=== PATIENT | female | born 1960 | race Caucasian/White ===

== ENCOUNTER → 2016-10-13 | Outpatient (CLI) | payer BC, OTHER ==
[~2016-10-13] MED LIST: ASPIR-TRIN325 MG PO; CELEBREX200 MG PO; COLACE100 MG PO; ESTROPIPATE0.75 MG PO; MILK OF MA400 MG/5 M; MILK OF MA400 MG/5 M PO; MIRALAX17 GM PO; MYRBETRIQ50 MG PO; PERCOCET 10-321 EACH PO; PRISTIQ ER100 MG PO; PROTONIX40 MG PO; ROPINIROLE HCL1 MG PO; THERA-VITE W/ B1 TAB PO; TOPAMAX100 MG PO; VITAMIN C WITH500 MG PO
== END | disposition disaster alternative care site (69) ==
LOC: GRAD 12:45
DX: M76.891 Other specified enthesopathies of right lower limb, excluding foot (principal); S93.601A Unspecified sprain of right foot, initial encounter; M21.40 Flat foot [pes planus] (acquired), unspecified foot; M21.6X1 Other acquired deformities of right foot; M79.671 Pain in right foot; R60.0 Localized edema

== ENCOUNTER 2016-10-25 09:18 | Observation (INO) | payer BC, OTHER ==
[~2016-10-25] VITALS: Ht 172.7 cm; Wt 127.1 kg
--- NOTE | ~2016-10-25 | OR ---
PATIENT'S NAME: [facility] AGE: 56 Y [address] ROOM: [place] [id number] LOCATION: [facility] ADMIT DATE: 10/25/2016 OR/Procedure Report DISCHARGE DATE: FAMILY PHYSICIAN: Fan Avalos MD ATTENDING PHYSICIAN: YANETH CUEVAS SURGEON: Yaneth Cuevas MD TAKE DOWN INSPECTOR: Lee Reeves PA-C DATE OF PROCEDURE: 10/25/2016 PREOPERATIVE DIAGNOSES: 1. Right symptomatic flatfoot. 2. Sub-fibular impingement. 3. Gastrocnemius equinus. 4. Pes cavovarus deformity. 5. Forefoot abductus. 6. Shortened Achilles tendon. POSTOPERATIVE DIAGNOSES: 1. Right symptomatic flatfoot. 2. Sub-fibular impingement. 3. Gastrocnemius equinus. 4. Pes cavovarus deformity. 5. Forefoot abductus. 6. Shortened Achilles tendon. PROCEDURES PERFORMED: 1. Right gastrocnemius recession. 2. Right medial calcaneal sliding osteotomy. 3. Lateral column lengthening. 4. Cotton osteotomy of the medial cuneiform. 5. Use of intraoperative fluoroscopy, less than one hour. ANESTHESIA: General anesthesia with peripheral nerve blocks. ESTIMATED BLOOD LOSS: Minimal. TOURNIQUET: Right proximal thigh, 250 mmHg. SPECIMENS: None. COMPLICATIONS: None. DISPOSITION: Stable, in PACU. COUNTS: All counts were correct. PATIENT'S NAME: [facility] AGE: 56 Y [address] ROOM: [place] [address] LOCATION: [facility] ADMIT DATE: 10/25/2016 OR/Procedure Report DISCHARGE DATE: FAMILY PHYSICIAN: Fan Avalos MD ATTENDING PHYSICIAN: YANETH CUEVAS IMPLANTS: Included Arthrex Step Plate for the calcaneal osteotomy, Arthrex metallic wedge and screws for the lateral column lengthening, metallic wedge for cotton osteotomy of the medial cuneiform, and metallic staple. INDICATIONS: Ms. Sheppard is a pleasant, 56-year-old female who underwent the noted procedures above. The risks, benefits, and alternatives to pursuing surgical intervention were discussed with the patient in detail. The patient elected to proceed with surgery. Anesthesia was consulted for their perioperative evaluation of the patient. I marked the patient's right lower extremity, indicating the correct surgical site. DESCRIPTION OF PROCEDURE: The patient was brought from the holding area to the operating room. A time-out was performed. Anesthesia was administered. Perioperative antibiotics were also administered. The patient was placed supine on the operating table, and the right lower extremity was then prepped and draped in the sterile fashion. I turned my attention to the right foot. An Esmarch was used to exsanguinate the limb, and the tourniquet was inflated to 250 mmHg. I began at the medial aspect of the leg. I began with a longitudinal incision through skin and subcutaneous tissue, down through fascia, to expose the gastrocnemius aponeurosis. I performed a gastrocnemius recession procedure. I achieved improved ankle dorsiflexion and good excursion of the gastrocnemius aponeurosis after it was lysed. The wound was then copiously irrigated with normal sterile saline solution and closed in layers. I then turned my attention to the lateral aspect of the hindfoot. I introduced intraoperative fluoroscopy. I made an incision over the lateral aspect of the calcaneus through skin and subcutaneous tissue, down to bone. I used a wood handle to elevate the soft tissue off the calcaneus. Using a sagittal saw. I performed my calcaneal osteotomy. I split the calcaneus medially approximately 1 cm. I then placed my Arthrex Step Plate by fixing 2 screws in the distal calcaneus and then a lag screw into the proximal portion of the calcaneus to compress it with approximately 1 cm of excursion. Two locking screws were placed at the proximal portion of the calcaneus to hold it in place. Plain radiographs of the calcaneus revealed successful medial calcaneal sliding osteotomy as well as axial views of the calcaneus. The wound was then copiously irrigated and closed in layers. I then turned my attention to the anterior process of the calcaneus. I began with a longitudinal incision through skin and subcutaneous tissue. I retracted the peroneal tendons posteriorly. Using a Henderson elevator. I identified fluoroscopically the level of my lateral column lengthening. Using PATIENT'S NAME: KAN SHEPPARD [facility] AGE: 56 Y [address] ROOM: [address] [address] LOCATION: [facility] ADMIT DATE: 10/25/2016 OR/Procedure Report DISCHARGE DATE: FAMILY PHYSICIAN: Fan Avalos MD ATTENDING PHYSICIAN: YANETH CUEVAS a sagittal saw, I performed my osteotomy. Using an intramedullary device, I was able to correct the forefoot abductus by placing a metallic wedge at the osteotomy site for the lateral column lengthening. I achieved good correction there. Once the wedge was in place, I confirmed its position fluoroscopically. Two screws were placed to the wedge to hold it in place. Final fluoroscopic images revealed successful lateral column lengthening. The wound was then copiously irrigated with normal sterile saline solution and closed in layers. I then turned my attention to the medial aspect of the foot. The patient appeared to have had previous radiographic and MRI evidence of a posterior tibial tendon tenolysis and transfer of the flexor digitorum longus tendon to the navicular bone with metallic suture anchors. There was also a well-healed surgical incision at that site. I used a Henderson elevator and fluoroscopy to identify the medial cuneiform. I made a dorsal incision over the medial cuneiform through skin and subcutaneous tissue. I made a capsular incision and identified the midportion of the medial cuneiform. To perform my plantar flexion cotton osteotomy, I used an oscillating saw to osteotomize the medial cuneiform. I placed one of the Arthrex metallic wedges size 4 and then placed an Arthrex metallic wedge in order to achieve this plantar flexion osteotomy. I achieved good correction. This helped to re-establish the position of the medial longitudinal arch. To hold the hardware in place, a metallic staple was placed over the medial cuneiform. The wound was then copiously irrigated with normal sterile saline solution and closed in layers. Final fluoroscopic images of the foot revealed successful flatfoot correction with hardware in place. No evidence of complication. The skin was then approximated with 3-0 nylon suture in an interrupted horizontal mattress fashion. The tourniquet was let down. Sterile dressing was placed in the form of Xeroform, followed by 4x4 and Webril. The patient was then placed into a well-padded short-leg splint with the ankle in neutral dorsiflexion. All the toes reperfused. The patient was then transferred from the operating table onto the stretcher and then brought to the recovery room in stable condition. There were no intraoperative complications noted. Of note, my PA, Lee Reeves PA-C, played an integral role in the intraoperative care of this patient. This included preoperative positioning, intraoperative expert retraction, and closing and splinting functions. IMPRESSION: The patient is status post the noted procedures above. PATIENT'S NAME: KAN SHEPPARD [facility] AGE: 56 Y [address] ROOM: [place] [address] LOCATION: [facility] ADMIT DATE: 10/25/2016 OR/Procedure Report DISCHARGE DATE: FAMILY PHYSICIAN: Fan Avalos MD ATTENDING PHYSICIAN: YANETH CUEVAS PLAN: The patient will be nonweightbearing on the right lower extremity in a short-leg splint. She will be instructed to rest, ice, and elevate the extremity going forward. Postoperative antibiotics will be per routine. Postoperative pain control will be in the form of Percocet and IV morphine as needed for pain. DVT prophylaxis will be in the form of aspirin. The hospitalist will be consulted for management of the patient's concomitant medical comorbidities. We will observe the patient overnight to address pain control issues. Physical Therapy and Occupational Therapy will be consulted for early ambulation and prevention of deconditioning. I will continue to monitor the patient closely in the postoperative period. MD NICOLLE PINTO/cesar /[id number] d: 10/25/16 1400 t: 10/26/16 1711, OPERATIVE SUMMARY
--- NOTE | ~2016-10-25 | OR ---
PATIENT'S NAME: KAN SHEPPARD [facility] AGE: 56 Y [address] ROOM: [address] [address] LOCATION: [facility] ADMIT DATE: 10/25/2016 OR/Procedure Report DISCHARGE DATE: FAMILY PHYSICIAN: Fan Avlaos MD ATTENDING PHYSICIAN: YANETH CUEVAS SURGEON: Lebron Schaffer DO MODEL MAKER APPRENTICE: DATE OF PROCEDURE: 10/25/2016 PREOPERATIVE DIAGNOSIS: Acute venous bleeding. POSTOPERATIVE DIAGNOSIS: Acute venous bleeding, laceration of saphenous vein, and muscular bleeder. PROCEDURE: Wound exploration with control of bleeding. BRIEF HISTORY: Ms. Sheppard is a 56-year-old white female who is undergoing an orthopedic surgery today with Dr. Cuevas. She has had run into difficulties with bleeding. We have been called to the operative suite for exploration, and we were called for assistance for control of bleeding of the wound. She previously had a thigh tourniquet on, and the wound was packed. The packing was removed, and the tourniquet was released. No obvious arterial bleeding was noted. We thoroughly inspected the wound, found the saphenous vein to be lacerated along the length of its vein and extending into a Y- branch. Each branch was then ligated with a surgical clip, and we did also identify a small muscular branch, may clip this as well. The wound was then copiously irrigated with normal saline. No other bleeding spots were found, and Dr. Cuevas returned to his normal operative case. LEBRON SCHAFFER DO MCB/modl /[id number] d: 10/25/162029 t: 10/26/16 0743, OPERATIVE SUMMARY
[~2016-10-25 09:18] MED LIST changes: -ASPIR-TRIN325 MG PO; -COLACE100 MG PO; -MILK OF MA400 MG/5 M; -MILK OF MA400 MG/5 M PO; -MIRALAX17 GM PO; -PERCOCET 10-321 EACH PO
[2016-10-25 23:41] LABS: BASOPHIL % 0.2 %; HEMATOCRIT 28.6 % (33.0-46.0); HEMOGLOBIN 9.2 g/dL (10.0-15.0); IMMATURE GRANULOCYTE % 0.4 %; LYMPHOCYTE # 0.7 K/uL (0.8-4.0); LYMPHOCYTE % 7.4 %; MCH 30.6 pg (27.0-34.0); MCHC 32.2 gm/dL (32.0-36.5); MONOCYTE # 0.8 K/uL (0.0-1.0); MONOCYTE % 7.6 %; MPV 11.1 fl (9.4-12.4); NEUTROPHIL # (ANC) 8.3 K/uL (1.8-7.8); NEUTROPHIL % 84.4 %; NRBC % 0 /100WBC (0-0.00); PLATELET COUNT 163 K/uL (150-450); RBC 3.01 M/uL (3.50-5.50); RDW-CV 12.9 % (11.9-14.6); WBC 9.9 K/uL (4.0-11.0)
[2016-10-25 23:53] LABS: INR - (THERAPEUTIC) 1.05 (0.92-1.07); PTT 26 SECONDS (25-32)
[2016-10-25 23:58] LABS: ALBUMIN 3.5 gm/dL (3.5-5.0); ALK PHOS 59 IU/L (33-138); ALT 20 IU/L (12-78); AST 11 IU/L (10-40); BLOOD UREA NITROGEN 15 mg/dL (6-24); CALCIUM 9.2 mg/dL (8.5-10.5); CHLORIDE 115 mMol/L (96-110); CO2 22 mMol/L (22-32); ESTIMATED GFR (MDRD EQUATION) 58; POTASSIUM 3.8 mMol/L (3.7-5.1); TOTAL BILIRUBIN 0.3 mg/dL (0.0-1.5); TOTAL PROTEIN 5.9 g/dL (6.0-8.4)
[2016-10-25 23:59] LABS: ANION GAP 12.8 (10.0-19.0); SODIUM 146 mMol/L (135-145)
--- NOTE | 2016-10-26 04:57 | NUR ---
Significant Event: Patient is alert and oriented x3. VSS. Follows commands. Strong in the upper and left lower extremities. Denies JEAN, dizziness, and blurred vision. PERRLA. Feeling has returned to the right extremity no longer experiencing n/t. Leon to SR- 2+ pulses (unable to assess RLE). Pale. Trace edema. Room air-1L at [facility], clear. Regular diet-takes pills whole with water. Last BM 10/25-active x4. 1-2A GB/walker. NWB to right extremity. PIV in R) FA with D5W at 50ml/hr until 0800 for K+ of 3.8. Xeroform, abd, fluffs, cast padding, and plaster splint with an KELLY wrap- has had scant serosanguinous drainage. Follow up: Monitor H&H and BMP at 0800 hospitalist with results. STOP fluids at 0800.
[2016-10-26 08:49] LABS: BLOOD UREA NITROGEN 13 mg/dL (6-24); CALCIUM 9.2 mg/dL (8.5-10.5); CO2 22 mMol/L (22-32); CREATININE 0.8 mg/dL (0.5-1.1); ESTIMATED GFR (MDRD EQUATION) > 60; POTASSIUM 3.5 mMol/L (3.7-5.1)
[2016-10-26 08:57] LABS: ANION GAP 11.5 (10.0-19.0); CHLORIDE 116 mMol/L (96-110); SODIUM 146 mMol/L (135-145)
[2016-10-26 08:59] LABS: HEMATOCRIT 27.2 % (33.0-46.0); HEMOGLOBIN 8.8 g/dL (10.0-15.0)
--- NOTE | 2016-10-26 13:10 | NUR ---
Introduced self and CM role to Alcira aMrio". Ingris tells me that she lives at home in [place] with her and it is her plan to return there when she is able to do so. Per Ingris, she sees' in [place] as a PCP and she gets her medications filled at [facility] in [place]. She did her own medications at home prior to coming into [facility] and she tells me she will continue to do so when she is dismissed. Her will come and get her when she is dismissed and will be able to stay with her for the first few days so she isn't alone at home. Ingris states that she has a scooter at home and a FWW to use if she needs it. Denies any other needs for any additional DME or HHC at this time. No other questions, needs or concerns. CM to continue to follow and assist. Plan home.
--- NOTE | 2016-10-26 13:50 | NUR ---
Significant Event: VSS. PATIENT A/O X 3. FOLLOWS COMMANDS. WIGGLES TOES TO RT FOOT. CAST DRESSING SCAN DRAINAGE. UNABLE TO ASSESS PULSES IN RT FOOT. STILL HAS SOME TINGLING TO RT TOES. LUNGS CLEAR AND DIM ON ROOM AIR. PAIN TOLERABLE WITH PRN PEROCECT. IV IN RT FOREARM SALINE LOCKED. UP WITH STANDBY ASSIST AND KNEE SCOOTER. AWAITING DR'S TO ROUND TO DETERMINE OUR PLAN TODAY. ALARMS ON FOR SAFETY. Follow up: PAIN CONTROL. HOME SOON?
[2016-10-26] MEDS ORDERED: PERCOCET 10-321 EACH PO (15:48)
[2016-10-26] MEDS ORDERED: ASPIR-TRIN325 MG PO (15:48)
[2016-10-26] MEDS ORDERED: COLACE100 MG PO (16:52)
[2016-10-26] MEDS ORDERED: MILK OF MA400 MG/5 M (16:52)
[2016-10-26] MEDS ORDERED: MIRALAX17 GM PO (16:52)
[2016-10-26] MEDS ORDERED: MILK OF MA400 MG/5 M PO (16:53)
--- NOTE | 2016-10-26 17:47 | NUR ---
ALL BELONGINGS GATHERED AND SENT WITH PATIENT. DISCHARGE ORDERS REVIEWED WITH PATIENT AND . NO FURTHER QUESTIONS AT THIS TIME. TAKEN TO FRONT LOBBY BY NURSE WHERE TRANSPORTED HOME.
== END 2016-10-26 17:25 | disposition disaster alternative care site (69) ==
LOC: GSDC 09:18 → EDSTATUS 10:00 → GNTU 19:23 → GSDC 19:47 → GNTU 19:47
PROVIDERS: Internal Medicine; ADMIT Orthopaedic Surgery Adult Reconstructive Orthopaedic Surgery
PROC: 0L8N0ZZ Division of Right Lower Leg Tendon, Open Approach (ICD-10-PCS; principal; 2016-10-25)
PROC: 0Q8L0ZZ Division of Right Tarsal, Open Approach (ICD-10-PCS; 2016-10-25)
PROC: 0JJW0ZZ Inspection of Lower Extremity Subcutaneous Tissue and Fascia, Open Approach (ICD-10-PCS; 2016-10-25)
DX: M67.01 Short Achilles tendon (acquired), right ankle (principal); M76.891 Other specified enthesopathies of right lower limb, excluding foot; M21.6X1 Other acquired deformities of right foot; Q66.1 Congenital talipes calcaneovarus; M21.40 Flat foot [pes planus] (acquired), unspecified foot; K21.9 Gastro-esophageal reflux disease without esophagitis; G25.81 Restless legs syndrome; M19.90 Unspecified osteoarthritis, unspecified site; Z88.2 Allergy status to sulfonamides; Z87.891 Personal history of nicotine dependence; Z79.899 Other long term (current) drug therapy
CPT/HCPCS: C1713; C1776; G0378; J0690; J1100; J2001; J2250; J2405; J3480; J7030; J7060